=== PATIENT | female | born 2000 | race American Indian/Alaskan Native ===

== ENCOUNTER 2019-03-29 16:34 | Outpatient (CLI) | payer MEDICAID ==
[2019-03-29 17:49] VITALS: BP 136/83
[2019-03-29 19:40] LABS: Bacteria,Urine 4+ /HPF (Negative); Bilirubin,Urine NEG (Negative); Blood,Urine NEG (Negative); Calcium Oxalate Crystals,Urine 3+; Color,Urine Yellow (Yellow); Mucus,Urine 1+ /HPF; Urobilinogen,Urine < 2.0 mg/dL (<2.0)
[2019-03-29] MEDS ORDERED: ANCEF/STERILE WATER 2 GM/20 ML IV ONE (20:40)
[2019-03-29] MEDS ORDERED: ANCEF/STERILE WATER 2 GM/20 ML 0 GM/0 ML SYRINGE IV ONE (20:46)
[2019-03-29] MEDS ORDERED: ceFAZolin 2 GM in NACL 0.9% 100 ML IV ONE (21:00)
== END 2019-03-29 22:09 | disposition home or self-care (01) ==
LOC: TRG 16:34
PROVIDERS: ATTEND Obstetrics & Gynecology
DX: O26.893 Other specified pregnancy related conditions, third trimester (principal); M25.551 Pain in right hip; M25.552 Pain in left hip; M54.5 Low back pain; O47.03 False labor before 37 completed weeks of gestation, third trimester; O26.873 Cervical shortening, third trimester; Z3A.29 29 weeks gestation of pregnancy; Z87.891 Personal history of nicotine dependence
CPT/HCPCS: 59025; 81001; 96365; J0690